=== PATIENT | male | born 1970 | race Caucasian/White ===

== ENCOUNTER 2018-02-10 18:38 | Emergency (ER) | payer BC, SELFPAY ==
[2018-02-10] VITALS (22 sets, daily range): BP systolic 110–165; BP diastolic 67–109; PULSE 63–99; RESP 11–30; TEMP 36.5–37; O2SAT 90–100
[2018-02-10] MEDS: Normal Saline 1,000 ML 1000 ML IV (18:50)
--- NOTE | 2018-02-10 18:50 | DI.CT_ITS ---
SYMPTOM/DIAGNOSIS: TRAUMA, FELL SKIING, LT SIDED PAIN CHEST, ABDOMEN AND PELVIC CT: The exam was performed with a partial contrast injection at 30 minutes. A total contrast delivery of 100.3 cc is recorded. The lower thorax is unremarkable. The liver is unremarkable. The gallbladder and biliary tree are unremarkable with no stones or ductal dilatation. The pancreas and spleen and adrenals are normal. There is extravasation of contrast material from the left collecting system into the left perinephric and anterior pararenal spaces to the level of the mid pelvis. Also note is made of contrast in the left ureter which can be seen to the level of the bladder. There are filling defects within the dilated left renal collecting system which may likewise represent blood. The right kidney contains a benign appearing peripelvic cyst and is otherwise unremarkable. The stomach and bowel appear unremarkable. There is no evidence of an acute appendix. The bladder is unremarkable. The reproductive organs as visualized are unremarkable. No acute fracture or evidence of a dislocation is seen. Note is made of a small uncomplicated left fat containing inguinal hernia. There is no evidence of an aortic aneurysm or dissection or rupture. There is no evidence of lymphadenopathy. SUMMARY: Findings consistent with a laceration of the upper left renal collecting system with extravasation of urine in the left perinephric and pararenal spaces. The left ureter is intact. The exact location of the laceration is not clearly apparent. The remainder of non emergent findings are described in the body of the report.
[2018-02-10] MEDS: MORPHine 10 MG/ML VIAL 4 MG IVP (18:56)
--- NOTE | 2018-02-10 18:56 | W.ED.GENAD ---
Discharge Plan Disposition Patient Disposition: [facility] Condition: Serious Discharge Details Chief Complaint: Trauma Clinical Impression: Laceration of left kidney, unspecified degree, sequela Reason For Visit: abd pain / ski accident Primary Care Provider: Kimi,Local ED Provider: Reddy Astudillo Home Meds and New Rx's Prescriptions: No Action levothyroxine 200 mcg Tablet 200 mcg PO DAILY RF: 0 ibuprofen [Ibuprofen IB] 200 mg Tablet 600 mg PO PRN PRNRF: 0 Discharge Data Discharge Date/Time-TO BE ENTERED AT DEPARTURE: 02/10/18 20:46 Medical Decision Making Patient presenting to the emergency department chief complaint of abdominal pain that started after he was skiing and had a fall. Patient states that he had lunch and then continued skiing and then approximately 2 hours after the fall he began having some mild abdominal pain. Patient vomited a couple times and attributed to an old sandwich that he had eaten at lunchtime. Patient denies hitting any object but just landing hard on the snow/ice. Patient denies any loss of consciousness, neurological deficits, significant neck back pain, chest pain, shortness of breath or difficulty breathing. Patient states pain worsened to the point causing him to come to the emergency department. Patient does state that he had 3 beers at lunch. Physical exam shows a very uncomfortable male patient is complaining of left-sided abdominal pain. Abdomen is soft but there is significant guarding to any palpation of the left side of the abdomen both upper and lower quadrants. No CVA tenderness, no spinal tenderness, clear lung sounds throughout all lung turner, regular S1-S2 normal cardiac sounds. Patient has no neurological deficits noted. Plan to perform trauma imaging including head and C-spine, chest abdomen pelvis with contrast. Concern for intra-abdominal injury, spleen versus intestine versus renal. Trauma labs also sent. Pending results patient given morphine and Zofran. Patient returned from CT and still in considerable amount of pain so 0.5 mg hydromorphone was given. Spoke with radiologist whom states concern for fluid collection around left kidney and blood seen within the collection system. For better imaging she is requesting a Noncon abdomen pelvis CT. Patient remained stable and states improvement of discomfort after hydromorphone Review of labs does show microscopic hematuria but no gross hematuria at this time. Labs otherwise reviewed and do show a leukocytosis which I contribute to more of a stress/injury response and do not feel this is infective in nature. Spoke to radiologist Dr. Aguila after second CT scan and there is findings consistent with laceration of upper left renal collecting system with extravasation of urine into the (phrenic and pararenal spaces. Left ureter intact. Called and spoke with transfer center at [facility] and images were sent for review of trauma service. Dr. Serrano accepted patient for renal laceration and patient was sent via calex laminator level at the request to [facility] trauma center. Patient was in agreement with this plan of care and remained stable throughout emergency department stay. HPI General Mode of arrival: wheelchair. Date/Time Provider Initiated Documentation: 02/10/18 18:50. Limitations to Documentation: no limitations. Information obtained by: patient and RN notes reviewed. History of Present Illness 47 year old M presents to the emergency department with the chief complaint of left abd pain- fall sking, described as severe, with intensity rated at 8. Quality is described as sharp, and is localized to the abdomen. Patient reports no radiation. and it has been constant. No relieving factors improve symptom(s), No exacerbating factors reported . Patient notes nausea/vomiting. Patient did receive the following treatments prior to arrival, none Related Data Home Medications Medication Instructions Recorded Confirmed ibuprofen [Ibuprofen IB] 600 mg PO PRN PRN 02/10/18 02/10/18 levothyroxine 200 mcg PO DAILY 02/10/18 02/10/18 Allergies Allergy/AdvReac Type Severity Reaction Status Date / Time No Known Allergies Allergy Unverified 02/10/18 18:59 General Stated Complaint: Trauma ISELA: 2 Review of Systems Constitutional Denies daytime sleepiness and Denies headache(s) ENT Denies headache(s) Cardiovascular Denies chest pain, Denies chest pain at rest, Denies chest pain with activity and Denies dyspnea Respiratory Denies cough, Denies hemoptysis and Denies dyspnea Gastrointestinal Reports as per HPI, Reports abdominal pain, Denies bloating, Reports nausea, Reports vomiting and Denies hematemesis Genitourinary Denies hematuria, Denies oliguria and Denies flank pain Musculoskeletal Denies arthralgias, Denies joint swelling and Denies limited range of motion Neurologic Denies confusion, Denies headache(s), Denies lack of coordination, Denies focal weakness, Denies memory loss, Denies other visual disturbances and Denies other (denies LOC) Psychiatric Denies confusion and Denies memory loss [facility] Medical History Hypothyroidism (Chronic) Social History Smoking/Tobacco Use Status: Never alcohol intake: current Exam Const General: cooperative, healthy appearing and acute distress moderate; not respiratory Nutritional Appearance: overweight Orientation: alert and oriented x3 [facility] Head: normal to inspection, no palpable skull fracture, normocephalic and atraumatic Ears: hearing grossly normal bilaterally and TM's normal bilaterally General nose exam: external nose normal and nares normal Face and sinus: normal facial exam Mouth: oral mucosae normal Neck Neck: normal visual inspection, full ROM, trachea midline, supple and no anterior neck swelling Chest Chest: normal inspection of the chest, normal palpation of entire chest wall, no crepitus and no localized rib tenderness Resp Effort & Inspection: normal respiratory effort, able to speak in complete sentences, abnormal respiratory pattern, no audible wheezes and no cough Auscultation: clear to auscultation bilaterally and lung sounds not diminished Cardio Rate: regular rate Rhythm: regular rhythm Heart Sounds: S1 normal and S2 normal Pulses: radial pulses present GI Inspection: no abdominal wall ecchymosis and non-distended Palpation: soft, guarding in the LLQ and in the LUQ, not rigid and tender in the LLQ and in the LUQ; not periumbilically Auscultation: hypoactive bowel sounds Back/Spine/Pelvis Back: no CVA tenderness Cervical Spine: normal cervical lordosis, No cervical spinal tenderness and No step off deformity Thoracic/Lumbar Spine: thoracic and lumbar spine normal to inspection, No thoracic spinal tenderness and No lumbar spinal tenderness Pelvis: no pain with anterior-posterior compression, no buttock ecchymosis, no buttock swelling and no unilateral elevation of iliac crest Skin General skin exam: no rashes or lesions noted Trauma: no lacerations or abrasions Wounds: no wounds Neuro General: alert, awake, oriented x3, tone normal, moves all extremities, no focal motor deficits and not confused Cognition: normal cognition Speech: speech normal Extrem General: normal to inspection, full ROM, normal capillary refill and no joint enlargement Course Vital Signs Temperature 36.5 C 02/10/18 18:43 Pulse 63 02/10/18 18:43 Respiratory Rate 16 02/10/18 18:43 Blood Pressure 163/105 H 02/10/18 18:43 Pulse Oximetry 100 12/19/18 18:43 Temperature 36.5 C 02/10/18 18:43 Temperature Source Skin 02/10/18 18:43 Pulse 63 02/10/18 18:43 Respiratory Rate 16 02/10/18 18:43 Respiratory Effort Non-Labored 02/10/18 18:43 Blood Pressure 163/105 H 02/10/18 18:43 Blood Pressure Position Supine 02/10/18 18:43 Pulse Oximetry 100 02/10/18 18:43 Oxygen Delivery Method Room Air 02/10/18 18:43 Oxygen Flow Rate 0 02/10/18 18:43 Pain Level 8 02/10/18 18:43
--- NOTE | 2018-02-10 19:06 | ED.GENADUL_ITS ---
Discharge Plan Disposition Patient Disposition: [facility] Condition: Serious Discharge Details Chief Complaint: Trauma Clinical Impression: Laceration of left kidney, unspecified degree, sequela Reason For Visit: abd pain / ski accident Primary Care Provider: Kimi,Local ED Provider: Reddy Astudillo Home Meds and New Rx's Prescriptions: No Action levothyroxine 200 mcg Tablet 200 mcg PO DAILY RF: 0 ibuprofen [Ibuprofen IB] 200 mg Tablet 600 mg PO PRN PRNRF: 0 Discharge Data Discharge Date/Time-TO BE ENTERED AT DEPARTURE: 02/10/18 20:46 Medical Decision Making Patient presenting to the emergency department chief complaint of abdominal pain that started after he was skiing and had a fall. Patient states that he had lunch and then continued skiing and then approximately 2 hours after the fall he began having some mild abdominal pain. Patient vomited a couple times and attributed to an old sandwich that he had eaten at lunchtime. Patient denies hitting any object but just landing hard on the snow/ice. Patient denies any loss of consciousness, neurological deficits, significant neck back pain, chest pain, shortness of breath or difficulty breathing. Patient states pain worsened to the point causing him to come to the emergency department. Patient does state that he had 3 beers at lunch. Physical exam shows a very uncomfortable male patient is complaining of left-sided abdominal pain. Abdomen is soft but there is significant guarding to any palpation of the left side of the abdomen both upper and lower quadrants. No CVA tenderness, no spinal tenderness, clear lung sounds throughout all lung turner, regular S1-S2 normal cardiac sounds. Patient has no neurological deficits noted. Plan to perform trauma imaging including head and C-spine, chest abdomen pelvis with contrast. Concern for intra-abdominal injury, spleen versus intestine versus renal. Trauma labs also sent. Pending results patient given morphine and Zofran. Patient returned from CT and still in considerable amount of pain so 0.5 mg hydromorphone was given. Spoke with radiologist whom states concern for fluid collection around left kidney and blood seen within the collection system. For better imaging she is requesting a Noncon abdomen pelvis CT. Patient remained stable and states improvement of discomfort after hydromorphone Review of labs does show microscopic hematuria but no gross hematuria at this time. Labs otherwise reviewed and do show a leukocytosis which I contribute to more of a stress/injury response and do not feel this is infective in nature. Spoke to radiologist Dr. Aguila after second CT scan and there is findings consistent with laceration of upper left renal collecting system with extravasation of urine into the (phrenic and pararenal spaces. Left ureter intact. Called and spoke with transfer center at [facility] and images were sent for review of trauma service. Dr. Serrano accepted patient for renal laceration and patient was sent via calex die storage worker level at the request to [facility] trauma center. Patient was in agreement with this plan of care and remained stable throughout emergency department stay. HPI General Mode of arrival: wheelchair . Date/Time Provider Initiated Documentation: 02/10/18 18:50 . Limitations to Documentation: no limitations . Information obtained by: patient and RN notes reviewed . History of Present Illness 47 year old M presents to the emergency department with the chief complaint of left abd pain- fall sking, described as severe, with intensity rated at 8. Quality is described as sharp, and is localized to the abdomen. Patient reports no radiation. and it has been constant. No relieving factors improve symptom(s), No exacerbating factors reported . Patient notes nausea/vomiting. Patient did receive the following treatments prior to arrival, none Related Data Home Medications Medication Instructions Recorded Confirmed ibuprofen [Ibuprofen IB] 600 mg PO PRN PRN 02/10/18 02/10/18 levothyroxine 200 mcg PO DAILY 02/10/18 02/10/18 Allergies Allergy/AdvReac Type Severity Reaction Status Date / Time No Known Allergies Allergy Unverified 02/10/18 18:59 General Stated Complaint: Trauma SIELA: 2 Review of Systems Constitutional Denies daytime sleepiness and Denies headache(s) ENT Denies headache(s) Cardiovascular Denies chest pain, Denies chest pain at rest, Denies chest pain with activity and Denies dyspnea Respiratory Denies cough, Denies hemoptysis and Denies dyspnea Gastrointestinal Reports as per HPI, Reports abdominal pain, Denies bloating, Reports nausea, Reports vomiting and Denies hematemesis Genitourinary Denies hematuria, Denies oliguria and Denies flank pain Musculoskeletal Denies arthralgias, Denies joint swelling and Denies limited range of motion Neurologic Denies confusion, Denies headache(s), Denies lack of coordination, Denies focal weakness, Denies memory loss, Denies other visual disturbances and Denies other (denies LOC) Psychiatric Denies confusion and Denies memory loss [facility] Medical History Hypothyroidism (Chronic) Social History Smoking/Tobacco Use Status: Never alcohol intake: current Exam Const General: cooperative, healthy appearing and acute distress moderate; not respiratory Nutritional Appearance: overweight Orientation: alert and oriented x3 [facility] Head: normal to inspection, no palpable skull fracture, normocephalic and atraumatic Ears: hearing grossly normal bilaterally and TM's normal bilaterally General nose exam: external nose normal and nares normal Face and sinus: normal facial exam Mouth: oral mucosae normal Neck Neck: normal visual inspection, full ROM, trachea midline, supple and no anterior neck swelling Chest Chest: normal inspection of the chest, normal palpation of entire chest wall, no crepitus and no localized rib tenderness Resp Effort & Inspection: normal respiratory effort, able to speak in complete sentences, abnormal respiratory pattern, no audible wheezes and no cough Auscultation: clear to auscultation bilaterally and lung sounds not diminished Cardio Rate: regular rate Rhythm: regular rhythm Heart Sounds: S1 normal and S2 normal Pulses: radial pulses present GI Inspection: no abdominal wall ecchymosis and non-distended Palpation: soft, guarding in the LLQ and in the LUQ, not rigid and tender in the LLQ and in the LUQ; not periumbilically Auscultation: hypoactive bowel sounds Back/Spine/Pelvis Back: no CVA tenderness Cervical Spine: normal cervical lordosis, No cervical spinal tenderness and No step off deformity Thoracic/Lumbar Spine: thoracic and lumbar spine normal to inspection, No thoracic spinal tenderness and No lumbar spinal tenderness Pelvis: no pain with anterior-posterior compression, no buttock ecchymosis, no buttock swelling and no unilateral elevation of iliac crest Skin General skin exam: no rashes or lesions noted Trauma: no lacerations or abrasions Wounds: no wounds Neuro General: alert, awake, oriented x3, tone normal, moves all extremities, no focal motor deficits and not confused Cognition: normal cognition Speech: speech normal Extrem General: normal to inspection, full ROM, normal capillary refill and no joint enlargement Course Vital Signs Temperature 36.5 C 02/10/18 18:43 Pulse 63 02/10/18 18:43 Respiratory Rate 16 02/10/18 18:43 Blood Pressure 163/105 H 02/10/18 18:43 Pulse Oximetry 100 12/19/18 18:43 Temperature 36.5 C 02/10/18 18:43 Temperature Source Skin 02/10/18 18:43 Pulse 63 02/10/18 18:43 Respiratory Rate 16 02/10/18 18:43 Respiratory Effort Non-Labored 02/10/18 18:43 Blood Pressure 163/105 H 02/10/18 18:43 Blood Pressure Position Supine 02/10/18 18:43 Pulse Oximetry 100 02/10/18 18:43 Oxygen Delivery Method Room Air 02/10/18 18:43 Oxygen Flow Rate 0 02/10/18 18:43 Pain Level 8 02/10/18 18:43
[2018-02-10 19:09] LABS: Bilirubin Negative (Negative); Blood Large (Negative); Clarity Clear; Glucose Negative (Negative); Ketones 15 mg/dL (Negative); Leukocyte Esterase Negative (Negative); Nitrite Negative (Negative); Specific Gravity 1.015 (1.005-1.025); Urobilinogen 0.2 EU/dL (Up TO 0.2); pH 7.5 (5-8)
[2018-02-10 19:10] LABS: Abs Immature Grans 0.06 k/cumm (0.0-0.09); Absolute Basophil Count 0.04 k/cumm (0.0-0.2); Absolute Eosinophil Count 0.02 k/cumm (0.0-0.7); Absolute Lymphocyte Count 1.46 k/cumm (1.2-3.4); Absolute Monocyte Count 0.91 k/cumm (0.11-0.7); Absolute Neutrophil Count 15.79 k/cumm (1.2-6.7); Basophils % 0.2; Eosinophils % 0.1; HCT 45.7 % (40.0-50.0); HGB 16.6 g/dL (13.5-17.5); Immature Grans % 0.3; Mean Corp. HGB Concentration 36.3 g/dL (32.0-36.0); Mean Corpuscular Hemoglobin 32.3 pg (27.0-33.0); Mean Corpuscular Volume 88.9 fL (80-95); Mean Platelet Volume 9.9 fL (8.0-11.0); Neutrophils % 86.4; Platelet Count 202 x1000/uL (130-400); RBC 5.14 m/cumm (4.50-6.00); RBC Distribution Width 12.6 % (11.8-14.1); White Blood Cell Count 18.27 k/cumm (4.4-10.8)
[2018-02-10] MEDS: Ondansetron 4 MG/2 ML VIAL IVP (19:10)
[2018-02-10] MEDS: HYDROmorphone 2 MG/ML VIAL 0.5 MG IVP (19:15)
[2018-02-10] MEDS: Omnipaque 350 MG/ML 100 ML BTL IJ (19:21)
[2018-02-10 19:22] LABS: ALT 50 U/L (12-78); AST 23 U/L (15-37); Albumin 4.6 g/dL (3.4-5.0); Alkaline Phosphatase 85 U/L (46-116); Anion Gap 16.6 mmol/L (3-11); BUN 15 mg/dL (7-18); Bilirubin, Total 0.5 mg/dL (0.2-1.0); CO2 24.4 mmol/L (21.0-32.0); CREATININE 1.15 mg/dL (0.70-1.30); Calcium 9.3 mg/dL (8.5-10.1); Chloride 99 mmol/L (98-107); Glucose 131 mg/dL (70-100); Lipase 104 U/L (73-393); Potassium 3.5 mmol/L (3.5-5.1); Sodium 140 mmol/L (136-145); Total Protein 8.6 g/dL (6.4-8.2)
[2018-02-10 19:24] LABS: Bacteria Rare HPF (Negative); C & S Indicated? No; Casts Negative LPF (Negative); Crystals Negative HPF (Negative); Epithelial Cells Rare HPF (Negative); Mucus Negative (Negative); Other Cells Negative (Negative); RBC 20-50 (0-2); WBC 0-2 HPF (0-5)
[2018-02-10 19:25] LABS: PTT Activated 19.4 sec (21.0-31.4); Prothrombin Time 10.1 sec (9.3-11.0)
--- NOTE | 2018-02-10 19:43 | DI.VRAD_ITS ---
EXAM: CT Chest With Contrast EXAM DATE/TIME: 02/10/2018 6:55 PM CLINICAL HISTORY: 47 years old, male; Injury or trauma; Fall; Blunt; Luq; Initial encounter; Blunt trauma (contusions or hematomas); Injury details: Skiing injury, trauma to l side TECHNIQUE: Axial computed tomography images of the chest with intravenous contrast. Coronal and sagittal reformatted images were created and reviewed. COMPARISON: No relevant prior studies available. FINDINGS: Lungs: Normal. No consolidation. No masses. Pleural space: Normal. No pneumothorax. No pleural effusion. Heart: There are coronary artery calcifications. No cardiomegaly. There is no evidence of significant pericardial fluid collections. Mediastinum: The trachea and main bronchi are patent. No mediastinal hematoma. A small hiatal hernia is present. Aorta: The aorta is normal in caliber with no evidence of aneurysm or dissection. Lymph nodes: Unremarkable. No enlarged lymph nodes. Bones/joints: There is no evidence of acute fracture.The spine demonstrates mild degenerative changes at multiple levels. There is normal sagittal alignment. Soft tissues: Unremarkable. IMPRESSION: 1. There is no evidence of mediastinal hematoma, pneumothorax, pleural effusion or pulmonary contusion. 2. There is no evidence of acute fracture. EXAM: CT Abdomen and Pelvis With Contrast EXAM DATE/TIME: 02/10/2018 6:55 PM CLINICAL HISTORY: 47 years old, male; Injury or trauma; Fall; Blunt; Luq; Initial encounter; Blunt trauma (contusions or hematomas); Injury details: Skiing injury, trauma to l side TECHNIQUE: Axial computed tomography images of the abdomen and pelvis with intravenous contrast. Coronal and sagittal reformatted images were created and reviewed. COMPARISON: No relevant prior studies available. FINDINGS: Lower thorax: No acute findings. ABDOMEN: Liver: There is a focal liver hypodensity that cannot be further characterized on the current examination.This lesion is too small to accurately characterize but statistically most likely represents an incidental cyst.No evidence of laceration or subcapsular collection. Gallbladder and bile ducts: Normal. No calcified stones. No ductal dilation. Pancreas: The pancreas is normal. There is a fat plane between the pancreas and the fluid in the left anterior pararenal space. Spleen: The spleen is normal. Adrenals: Normal. No mass. Kidneys and ureters: There are probable left parapelvic cysts. There is high attenuation material in the left renal collecting system, renal pelvis and proximal ureter. There is fluid and stranding in the left perinephric and anterior pararenal spaces. No definite laceration or subcapsular hematoma. The right kidney demonstrates probable parapelvic cysts.No evidence of laceration or subcapsular collection. Stomach and bowel: No bowel wall thickening. Appendix: No evidence of appendicitis. PELVIS: Bladder: Unremarkable as visualized. Reproductive: Unremarkable as visualized. ABDOMEN and PELVIS: Intraperitoneal space: There is no free intraperitoneal air. There is a fluid in the left anterior pararenal space and left perinephric space. No evidence of active extravasation of contrast to suggest arterial hemorrhage. Bones/joints: The spine demonstrates mild degenerative changes at multiple levels. There is no evidence of acute fracture.There is normal sagittal alignment. Soft tissues: There is a small uncomplicated fat containing left inguinal hernia. Vasculature: The aorta is normal in caliber. Lymph nodes: Normal. No enlarged lymph nodes. IMPRESSION: 1. There is high attenuation material in the left renal collecting system with fluid and stranding in the left perinephric and anterior pararenal spaces. No laceration or subcapsular collection is identified. An immediate followup CT without additional contrast is recommended to exclude collecting system rupture and urinary extravasation. 2. Remaining solid viscera are intact with no evidence of laceration. 3. No evidence of active extravasation of contrast. 4. There is no evidence of acute fracture. Remainder of non-emergent findings as described above. THIS REPORT CONTAINS FINDINGS THAT MAY BE CRITICAL TO PATIENT CARE. The findings were verbally communicated via telephone conference with LAW Astudillo 02/10/2018 7:42 PM EST. The findings were acknowledged and understood. Dictated and Authenticated by: Jazmine Aguila MD. Ordering:OTIS Blakely MD
[2018-02-10 19:54] LABS: ETHANOL BLOOD < 3.0 mg/dL (<3)
--- NOTE | 2018-02-10 20:10 | DI.VRAD_ITS ---
Addendum created by Jazmine Aguila MD on 02/10/2018 8:12:25 PM EST THIS REPORT CONTAINS FINDINGS THAT MAY BE CRITICAL TO PATIENT CARE. The findings were verbally communicated via telephone conference with RURAL [employer]RIER Reddy Astudillo 02/10/2018 8:12 PM EST. The findings were acknowledged and understood. Initial report created on 02/10/2018 8:09:54 PM EST EXAM: CT Abdomen and Pelvis Without Contrast EXAM DATE/TIME: 02/10/2018 7:37 PM CLINICAL HISTORY: 47 years old, male; Abnormal findings; Abnormal radiologic finding of the abdomen; Radiologic exam and body structure: CT chest/ab/pel w contrast; Patient HX: Trauma to left side, delayed w/o scan per request of [facility] radiologist TECHNIQUE: Axial computed tomography images of the abdomen and pelvis without contrast. Coronal and sagittal reformatted images were created and reviewed. COMPARISON: CT Private^[facility] (Adult) 02/10/2018 7:09 PM FINDINGS: Lower thorax: No acute findings. ABDOMEN: Liver: No acute abnormality. Gallbladder and bile ducts: Normal. No calcified stones. No ductal dilation. Pancreas: Normal. No ductal dilation. Spleen: Normal. No splenomegaly. Adrenals: Normal. No mass. Kidneys and ureters: There is extravasation of contrast from the left renal collecting system into the left perinephric and anterior pararenal spaces to the level of the mid pelvis. There is contrast in the left ureter which can be seen to the level of the bladder. There are filling defects within the dilated left renal collecting system which likely represent blood clot. The right kidney demonstrates benign parapelvic cyst and is otherwise unremarkable. Stomach and bowel: Normal. No obstruction. No mucosal thickening. Appendix: No evidence of appendicitis. PELVIS: Bladder: Unremarkable as visualized. Reproductive: Unremarkable as visualized. ABDOMEN and PELVIS: Intraperitoneal space: No free air. There is fluid and contrast in the left anterior pararenal space. Bones/joints: No acute fracture. No dislocation. Soft tissues: There is a small uncomplicated fat containing left inguinal hernia. Vasculature: Normal. No abdominal aortic aneurysm. Lymph nodes: Normal. No enlarged lymph nodes. IMPRESSION: Findings consistent with laceration of the upper left renal collecting system with extravasation of urine in the left perinephric and pararenal spaces. The left ureter appears intact. The exact location of the laceration is not clearly evident. Remainder of non-emergent findings as described above. Dictated and Authenticated by: Jazmine Aguila MD. Ordering:OTIS Blakely MD
== END 2018-02-10 20:46 | disposition short-term general hospital (02) ==
PROVIDERS: Emergency Provider Nurse Practitioner Family
DX: S37.032A Laceration of left kidney, unspecified degree, initial encounter (principal); V00.321A Fall from snow-skis, initial encounter; Y93.23 Activity, snow (alpine) (downhill) skiing, snowboarding, sledding, tobogganing and snow tubing; R11.2 Nausea with vomiting, unspecified
CPT/HCPCS: 36415; 74177; 80053; 83690; 86850; 86900; 86901; 96361; 96374; 96375; 99285; 71260; 74176; 80320; 81003; 81015; 85025; 85610; 85730; J2405; J3490